=== PATIENT | female | born 1985 | race Caucasian/White ===

== ENCOUNTER 2016-10-28 10:02 | Outpatient (CLI) | payer BC | END 2016-10-28 13:07 | disposition home or self-care (01) | LOC: GENOP 10:02 | DX: O99.89 Other specified diseases and conditions complicating pregnancy, childbirth and the puerperium (principal); R10.2 Pelvic and perineal pain; Z3A.31 31 weeks gestation of pregnancy | CPT/HCPCS: 81001; 82731; 83518; G0463 ==

== ENCOUNTER 2016-12-02 21:30 | Outpatient (CLI) | payer BC | END 2016-12-03 00:52 | disposition home or self-care (01) | LOC: GENOP 21:30 | DX: O21.2 Late vomiting of pregnancy (principal); O99.89 Other specified diseases and conditions complicating pregnancy, childbirth and the puerperium; M54.9 Dorsalgia, unspecified; G43.909 Migraine, unspecified, not intractable, without status migrainosus; Z3A.37 37 weeks gestation of pregnancy | CPT/HCPCS: 83518; 96372; J2270; J2550 ==

== ENCOUNTER 2016-12-18 05:34 | Inpatient (IN) | payer BC ==
[~2016-12-18] VITALS: Ht 175.3 cm; Wt 87.5 kg
[2016-12-18 06:27] LABS: HEMOGLOBIN 12.9 gm/dl (12.3-15.3); RED BLOOD COUNT 3.74 M/UL (4.00-5.10); WHITE BLOOD COUNT 5.9 K/UL (4.5-11.0)
[2016-12-20 02:44] LABS: HEMOGLOBIN 11.3 gm/dl (12.3-15.3)
[2016-12-20] MEDS ORDERED: NORCO 5-325 TA1 EACH PO (11:11)
== END 2016-12-20 12:33 | disposition home or self-care (01) | DRG 775 ==
LOC: OB 05:34
PROVIDERS: Obstetrics & Gynecology; ADMIT Obstetrics & Gynecology
PROC: 10907ZC Drainage of Amniotic Fluid, Therapeutic from Products of Conception, Via Natural or Artificial Opening (ICD-10-PCS; principal; 2016-12-18)
PROC: 10E0XZZ Delivery of Products of Conception, External Approach (ICD-10-PCS; 2016-12-19)
PROC: 3E0E7GC Introduction of Other Therapeutic Substance into Products of Conception, Via Natural or Artificial Opening (ICD-10-PCS; 2016-12-19)
DX: O99.12 Other diseases of the blood and blood-forming organs and certain disorders involving the immune mechanism complicating childbirth (principal); O75.89 Other specified complications of labor and delivery; O77.1 Fetal stress in labor or delivery due to drug administration; Z3A.39 39 weeks gestation of pregnancy; O12.04 Gestational edema, complicating childbirth; Z37.0 Single live birth; M54.9 Dorsalgia, unspecified; O99.344 Other mental disorders complicating childbirth; G47.00 Insomnia, unspecified; F41.9 Anxiety disorder, unspecified; Z82.49 Family history of ischemic heart disease and other diseases of the circulatory system; Z83.49 Family history of other endocrine, nutritional and metabolic diseases; Z80.3 Family history of malignant neoplasm of breast; Z83.3 Family history of diabetes mellitus; Z81.8 Family history of other mental and behavioral disorders; Z87.891 Personal history of nicotine dependence
CPT/HCPCS: 36415; 51702; 81001; 82800; 85014; 85018; 85025; 90707; J2300; J2405; J2550; J2590; J2765; J2795; J3010; J3430; J7030; J7050; J7120

== ENCOUNTER → 2022-02-09 | Outpatient (CLI) | payer BC ==
[~2022-02-09] MED LIST: IMITREX50 MG PO; NORCO 5-325 TA1 EACH PO
[2022-02-09 12:50] LABS: HEMOGLOBIN 15.2 gm/dl (12.3-15.3); RED BLOOD COUNT 4.52 M/UL (4.00-5.10); WHITE BLOOD COUNT 4.4 K/UL (4.5-11.0)
[2022-02-09 13:18] LABS: BUN/CREATININE RATIO 13 (0-10)
[2022-02-09 14:14] LABS: ADENOVIRUS F 40/41 Not Detected (Negative); ASTROVIRUS Not Detected (Negative); CAMPYLOBACTER Not Detected (Negative); CRYPTOSPORIDIUM Not Detected (Negative); E.COLI 0157 Not Detected (Negative); ENTAMOEBA HISTOLYTICA Not Detected (Negative); ENTEROAGGREGATIVE E.COLI (EAEC Not Detected (Negative); ENTEROPATHOGENIC E.COLI (EPEC) Not Detected (Negative); ENTEROTOXIGENIC E.COLI (ETEC) Not Detected (Negative); GIARDIA LAMBLIA Not Detected (Negative); NOROVIRUS GI/GII Not Detected (Negative); PLESIOMONAS SHIGELLOIDES Not Detected (Negative); ROTOVIRUS A Not Detected (Negative); SALMONELLA Not Detected (Negative); SAPOVIRUS Not Detected (Negative); SHIG/ENTEROINVAS.ECOLI (EIEC) Not Detected (Negative); SHIGA-LIK TOX.PRO.E.COLI (STEC Not Detected (Negative); VIBRIO Not Detected (Negative); VIBRIO CHOLERAE Not Detected (Negative); YERSINIA ENTEROCOLITICA Not Detected (Negative)
[2022-02-09 15:52] LABS: CLOSTRIDIUM DIFFICILE TOX A/B DETECTED (Negative)
== END ==
LOC: LAB 12:08
PROVIDERS: Physician Assistant
DX: R19.7 Diarrhea, unspecified (principal)
CPT/HCPCS: 36415; 80048; 85025; 87507